=== PATIENT | female | born 1990 | race Caucasian/White ===

== ENCOUNTER 2017-05-13 16:01 | Emergency (ER) | payer OTHER ==
[~2017-05-13] VITALS: Ht 167.6 cm; Wt 70.0 kg
[2017-05-13 16:09] VITALS: PULSE 73; TEMP 36.6; Ht 167.6 cm; Wt 70.0 kg
[2017-05-13] MEDS ORDERED: IBUPROFEN 600 MG TAB PO STA (16:19)
--- NOTE | 2017-05-13 17:38 | DIAGNOSTIC IMAGING REPORT ---
C-SPINE CROSS TABLE 1 VIEW CLINICAL HISTORY: NECK PAIN-SKI LIFT INJURY COLLAR CLEARANCE COMPARISON STUDY: None. FINDINGS: Single lateral view of the cervical spine. The cervical spine is visualized from C1 through the superior endplate of T1. No fracture or subluxation. Mild disc space narrowing and small endplate osteophytes at C5-C6. Prevertebral soft tissues and the C1-C2 interval are maintained. IMPRESSION: No fracture or subluxation within the cervical spine. Electronically signed by: Kayden Whitaker M.D. 05/13/2017 5:37 PM Dictated Date/Time: 05/13/2017 5:36 PM
--- NOTE | 2017-05-13 18:30 | DIAGNOSTIC IMAGING REPORT ---
LEFT ANKLE 3 VIEWS HISTORY: L ankle/leg pain COMPARISON: None. FINDINGS: There is no fracture or dislocation. Soft tissues are unremarkable. No radiopaque foreign bodies. IMPRESSION: No fractures. Electronically signed by: Kayden Whitaker M.D. 05/13/2017 6:29 PM Dictated Date/Time: 05/13/2017 6:28 PM
--- NOTE | 2017-05-13 18:31 | DIAGNOSTIC IMAGING REPORT ---
LEFT FEMUR 4 VIEWS HISTORY: L thigh pain COMPARISON: None. FINDINGS: There is no fracture or dislocation. Soft tissues are unremarkable. No radiopaque foreign bodies. IMPRESSION: No fractures. Electronically signed by: Kayden Whitaker M.D. 05/13/2017 6:30 PM Dictated Date/Time: 05/13/2017 6:29 PM
--- NOTE | 2017-05-13 18:32 | DIAGNOSTIC IMAGING REPORT ---
CERVICAL SPINE 5 VIEWS HISTORY: SKI LIFT INJURY-NECK PAIN COMPARISON: None. FINDINGS: The cervical spine is visualized from C1 through the superior endplate of T1. There is no fracture. No subluxation. Disc spaces are preserved. Prevertebral soft tissues and the atlantodens interval are intact. Mild reversal the normal lordotic curvature with mild disc space narrowing at C5-C6 and small endplate osteophytes. The remaining disc spaces are preserved. IMPRESSION: No fracture or subluxation within the cervical spine. Electronically signed by: Kayden Whitaker M.D. 05/13/2017 6:31 PM Dictated Date/Time: 05/13/2017 6:30 PM
[2017-05-13 19:13] VITALS: BP 116/78; O2SAT 99
--- NOTE | 2017-05-13 19:17 | EMERGENCY ROOM VISIT NOTE ---
History First contact with patient: 16:13 Chief Complaint: ANKLE PAIN Stated Complaint: L THIGH CONCUSION, L ANKLE INJURY FROM [facility] History of Present Illness The patient is a 27 year old female who presents to the Emergency Room with complaints of injuries from a ski lift accident at [facility]. Several of the lift chairs slid into each other. The patient was in a chair by herself. She complains mostly of left ankle and left thigh pain. She also reports mildly increasing discomfort in the neck as well. She denies any head injury, headache, chest pain, shortness of breath, abdominal pain or back pain. The patient reports that applying a cardboard splint to her ankle worsen her discomfort. She denies any injury to the right lower extremity, and rates her discomfort a 6 out of 10. Review of Systems 10 system review was performed and was negative except for pertinent positives and negatives as indicated in history of present illness Past Medical/Surgical History Medical Problems: (1) No significant past medical history Surgical Problems: (1) No history of previous surgery Family History Unremarkable Social History Smoking Status: Never Smoker Alcohol Use: occasionally Marital Status: single Occupation Status: student Current/Historical Medications No Active Prescriptions or Reported Meds Physical Exam Vital Signs Date Time Temp Pulse Resp B/P (MAP) Pulse Ox O2 Delivery O2 Flow Rate FiO2 05/13/17 16:09 36.6 73 16 125/88 98 Room Air Physical Exam CONSTITUTIONAL: Healthy and well nourished. Alert and oriented X 3 with positive affect. Patient appears in mild discomfort from pain. HEENT: Normocephalic, atraumatic. Pupils equal, round and reactive. No facial abrasions, ecchymosis or soft tissue edema. No ecchymosis or subconjunctival hemorrhage. NECK: A cervical collar is in place, and the patient has mild tenderness to palpation of the cervical musculature. Cervical collar was not removed. RESPIRATORY: Clear to auscultation bilaterally with no wheezing, crackles, rhonchi or stridor. CARDIOVASCULAR: Regular rate and rhythm with no murmurs, rubs or gallops. GASTROINTESTINAL: Bowel sounds present in all quadrants. Soft and nontender to palpation. MUSCULOSKELETAL: Examination of the left ankle does not show any open wounds. She is tender about the entire ankle. No focal tenderness through the proximal leg or knee region. She has mild firmness to palpation of the left thigh with notable ecchymosis. She has no tenderness to palpation through the greater trochanteric region. Otherwise remaining musculoskeletal exam was performed and was normal. Distal pulses are intact. INTEGUMENTARY: No rash or other significant dermatologic conditions noted. NEUROLOGIC: Upper and lower extremities are sensory intact. Medical Decision & Procedures ER Provider Diagnostic Interpretation: My interpretation of left ankle x-rays does not show any obvious fractures, dislocation or ankle mortise asymmetry. My interpretation of left femur x-rays does not show any acute fractures or joint dislocations. My interpretation of cervical spine x-rays does not show any acute fractures or subluxations. Mild lordotic reversal is noted. Lateral clearance was initially cleared with a lateral view. Radiologist reports were reviewed. Medications Administered Medications (Trade) Dose Ordered Sig/Radha Route Start Time Stop Time Status Last Admin Dose Admin Ibuprofen (Motrin Tab) 600 mg NOW STAT PO 05/13/17 16:19 12 16:21 DC 05/13/17 16:29 600 MG ED Course Patient history and physical exam were performed. Nurse's notes were reviewed. Vital signs were reviewed and were normal. The patient requested ibuprofen for pain, and was therefore administered ibuprofen 600 mg orally. X-rays of the left ankle, left femur and cervical spine were all normal. Crutches were dispensed for the patient. She was given instructions to intermittently apply ice to areas of discomfort. Ibuprofen and Tylenol in alternating fashion as needed for pain. The patient was encouraged to remain limited weightbearing over the next 3 days, performing range of motion exercises to prevent ankle stiffness. Follow-up with orthopedics with any persistent symptoms. The patient was happy with plan of care, voiced understanding of all discharge instructions, and rated her discomfort a 3 out of 10 at the conclusion of my exam. Medical Decision Medication Reconcilliation Current Medication List: was personally reviewed by me Blood Pressure Screening Patient's blood pressure: Normal blood pressure Impression Primary Impression: Left ankle sprain Additional Impressions: Cervical strain, acute Contusion of left thigh, initial encounter Departure Information Prescriptions No Active Prescriptions or Reported Meds Referrals No Doctor, Assigned (PCP) Patient Instructions My [facility] Problem Qualifiers Primary Impression: Left ankle sprain Encounter type: initial encounter Involved ligament of ankle: unspecified ligament Qualified Codes: S93.402A - Sprain of unspecified ligament of left ankle, initial encounter Additional Impressions: Cervical strain, acute Encounter type: initial encounter Qualified Codes: S16.1XXA - Strain of muscle, fascia and tendon at neck level, initial encounter
== END 2017-05-13 19:14 | disposition home or self-care (01) ==
LOC: C.EDB 16:04 → C.EDD 19:14
DX: S93.402A Sprain of unspecified ligament of left ankle, initial encounter (principal); S16.1XXA Strain of muscle, fascia and tendon at neck level, initial encounter; S70.12XA Contusion of left thigh, initial encounter; V98.3XXA Accident to, on or involving ski lift, initial encounter; Y93.23 Activity, snow (alpine) (downhill) skiing, snowboarding, sledding, tobogganing and snow tubing; Y92.838 Other recreation area as the place of occurrence of the external cause